=== PATIENT | male | born 1995 | race Caucasian/White ===

== ENCOUNTER 2017-04-25 12:41 | Emergency (ER) | payer OTHER ==
[~2017-04-25] VITALS: Ht 180.3 cm; Wt 145.0 kg
[2017-04-25] MEDS ORDERED: BUPIVACAINE HCL 0.5% 50 ML VIAL PERC ONE (13:30)
[2017-04-25] MEDS ORDERED: LIDOCAINE HCL 1% 10 ML VIAL INJ ONE (13:30)
[2017-04-25] MEDS ORDERED: BUPIVACAINE HCL/PF 0.5% 30 ML VIAL PERC ONE (13:45)
[2017-04-25] MEDS ORDERED: POVIDONE-IODINE 10% 15 ML SOLUTION UD TP ONE (14:00)
[2017-04-25 14:53] VITALS: BP 145/72
== END 2017-04-25 14:54 | disposition home or self-care (01) ==
LOC: EMS 12:47
DX: L60.0 Ingrowing nail (principal); L08.9 Local infection of the skin and subcutaneous tissue, unspecified
CPT/HCPCS: 11730; 99285; J3490 ×2

== ENCOUNTER 2025-02-09 14:19 | Emergency (ER) | payer OTHER ==
[~2025-02-09] VITALS: Ht 183.5 cm; Wt 109.1 kg
[2025-02-09 14:33] VITALS: BP_DIAS 55; TEMP 98.1
[2025-02-09] MEDS ORDERED: BUPR1TAB46 SL (16:41)
[2025-02-09] MEDS: BUPRENORPHINE HCL/NALOXONE HCL 8-2 MG SUBLINGUAL TABLET SL ONE (16:56)
[2025-02-09 17:10] VITALS: BP_SYST 117; PULSE 88; RESP 16; O2SAT 98
== END 2025-02-09 17:17 | disposition home or self-care (01) ==
LOC: EMS 14:19
DX: F11.10 Opioid abuse, uncomplicated (principal); Z76.0 Encounter for issue of repeat prescription; Z72.89 Other problems related to lifestyle
CPT/HCPCS: 99283